=== PATIENT | male | born 1995 | race Caucasian/White ===

== ENCOUNTER 2017-11-06 15:43 | Emergency (ER) | payer BC ==
[2017-11-06 16:08] VITALS: RESP 16; TEMP 98.1
--- NOTE | 2017-11-06 17:33 | CPEKG ---
Heart Rate: 65 RR Interval: 923 P-R Interval: 156 QRSD Interval: 82 QT Interval: 376 QTC Interval: 391 P [place]: 43 QRS [place]: 79 T Wave [place]: 49 EKG Severity - NORMAL ECG - EKG Impression: SINUS RHYTHM Electronically Signed By: Helen Collazo 06-Nov-2017 22:28:19
--- NOTE | 2017-11-06 17:43 | EDPHY ---
H & P Stated Complaint: Passed out 2 days ago;dyspnea since; no known injury Time Seen by Provider: 11/06/17 17:23 HPI/ROS: CHIEF COMPLAINT: Fainted, chest pain, short of breath HISTORY OF PRESENT ILLNESS: This is a 21-year-old in general good health who had a syncopal episode 2 nights ago. This occurred after drinking 2 beers and smoking small amount of pot. He rarely drinks alcohol and did not smoke what he considered a significant amount of marijuana. He was aware of feeling lightheaded, as if he might faint, and was lowered to the ground, thus avoiding injury. Since that time he has had chest tightness, worse on the left than on the right. This comes and goes. He is not aware of any inciting events. He also feels short of breath. He is not having pleuritic pain. He has not had cough or fever. He denies calf pain or swelling. No recent travel. No family history of VTE. No family history of early coronary artery disease. He has not had vomiting or diarrhea and has not seen blood in his stool. REVIEW OF SYSTEMS: A ten point review of systems was performed and is negative with the exception of the items mentioned in the HPI. Past medical history: Negative Past surgical history: Negative Social history: He is a student and also works at [employer]. He does not use tobacco products. He drinks alcohol rarely. He smokes marijuana on occasion. No illicit drugs. General Appearance: Alert. Vital signs reviewed. Eyes: Pupils equal and round, no conjunctival injection, no discharge. Anicteric. ENT, Mouth: Mucous membranes are moist, no oropharyngeal erythema or edema. Neck: No lymphadenopathy, supple. Respiratory: Lungs are clear to auscultation; no wheezes, rales, or rhonchi. Cardiovascular: Regular rate and rhythm; no murmur, rub, or gallop. Gastrointestinal: Abdomen is soft and nontender, no masses or organomegaly, bowel sounds normal. Skin: Warm and dry, no rashes on exposed skin, normal color. Back: Nontender to palpation over the thoracolumbar spine. No CVAT. Extremities: No lower extremity edema, no calf tenderness or swelling. Neurological: Alert and oriented. Moving all four extremities easily and equally. PERRL. EOMI. Facial expressions symmetric. Tongue midline. Psychiatric: Normal affect. - Personal History Current Tetanus Diphtheria and Acellular Pertussis (TDAP): Yes - Medical/Surgical History Other PMH: none - Social History Smoking Status: Never smoked Constitutional: Initial Vital Signs Temperature (C) 36.7 C 11/06/17 15:50 Heart Rate 85 11/06/17 15:50 Respiratory Rate 16 11/06/17 15:50 Blood Pressure 116/71 11/06/17 15:50 O2 Sat (%) 97 11/06/17 15:50 O2 Delivery Mode Room Air Allergies/Adverse Reactions: No Known Allergies Allergy (Unverified 11/06/17 16:08) Home Medications: Medication Instructions Recorded NK [No Known Home Meds] 11/06/17 Medical Decision Making - Diagnostics EKG Interpretation: 12 lead EKG is interpreted in Trace master View by emergency department physician. ED Course/Re-evaluation: 22 year old male with syncopal episode 2 nights ago and persistent chest pain. Evaluation included CXR which is normal--no pneumothorax, no infiltrate. CBC with normal HGB, HCT. D-dimer normal, PE unlikely with normal d-dimer. He is actually PERC negative (less than 2% likelihood of PE), but d-dimer was ordered because of his syncopal episode and because of the clinical symptom of chest pain. EKG is without evidence of pericarditis, right heart strain, ischemia, arrhythmia. Syncopal episode likely vasovagal or related to marijuana. Chest pain of unknown etiology. He will try NSAIDs and has a follow up appointment with his PCP. Danger signs that should prompr immediate re- evaluation were reviewed with him. Differential Diagnosis: Syncope including but not limited to vasovagal syncope, arrhythmia, dehydration , and blood loss. Shortness of breath including but not limited to pulmonary infectious process, COPD, asthma, pulmonary embolus and congestive heart failure. - Data Points Laboratory Results: Laboratory Results 11/06/17 19:30 Departure - Departure Disposition: Home, Routine, Self-Care Clinical Impression: Syncope Qualifiers: Syncope type: vasovagal syncope Qualified Code(s): R55 - Syncope and collapse Condition: Good Instructions: Syncope (ED) Additional Instructions: As we discussed, I did not find any of the dangerous or life-threatening problems that might have caused you to faint. These include cardiac arrhythmia , pulmonary embolus (blood clot in the lung), pneumonia, and pneumothorax ( collapsed lung). Keep the appointment that you have on Monday with your primary care doctor at [facility]. If anything changes for the worse--fever, cough, a 2nd fainting episode, worsening shortness of breath--you should return and be evaluated again. Referrals: Sonya Olvera MD [Medical Doctor] - As per Instructions Stand Alone Forms: School Excuse
[2017-11-06 19:44] LABS: PLATELET COUNT 253 10^3/uL (150-400)
[2017-11-06 20:54] VITALS: BP 122/67; PULSE 70; O2SAT 99
== END 2017-11-06 20:54 | disposition home or self-care (01) ==
DX: R55 Syncope and collapse (principal)